=== PATIENT | male | born 2000 | race Caucasian/White ===

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

== ENCOUNTER 2020-03-01 09:30 | Emergency (ER) | payer OTHER ==
--- NOTE | 2020-03-01 09:54 | ERPHSYRPT ---
- History of Present Illness Time Seen by Provider: 03/01/20 09:49 Source: patient Exam Limitations: no limitations Patient Subjective Stated Complaint: Right shoulder pain Triage Nursing Assessment: Patient ambulated back to ED and transferred self to bed. Patient A+O X3. Patient's skin pink, warm and dry. Patient complains of right shoulder pain for the last 5 months. Patient states he has been seen by family dr and chiropractor and was told he has some type of tear in his right shoulder, but no imaging has been done. 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 Patient's states pain is 5/10 when at rest, but 10/10 when moving constant aching with intermittent, sharp pain. No visible bruising or injuries noted. Patient states sometimes when he lifts his right arm up he hears a grinding noise. Patient also states he occasional will have a sharp pain shoot from his right elbow to right hand/fingers. Physician History: Is a 19-year-old white male who presents with a complaint of right shoulder pain for 5 months following a dislocation. He has seen his family doctor has been referred to PT however no imaging has been done. Not followed up with Ortho. Pain has been treated with naproxen without any help. PT did not seem to help. Been told by his family doctor that there is a tear in his rotator cuff. It now makes a grinding noise and a pop. Method of Injury: other (Location right shoulder 5 months ago) Quality: sharpness Severity of Pain-Max: moderate Severity of Pain-Current: moderate Extremities Pain Location: shoulder: right (Tender over anterior and posterior aspects of the shoulder. There is also increased pain with internal rotation.) Modifying Factors: Improves With: movement Associated Symptoms: none Allergies/Adverse Reactions: No Known Drug Allergies Allergy (Verified 03/01/20 09:34) Hx Tetanus, Diphtheria Vaccination/Date Given: Yes Hx Influenza Vaccination/Date Given: No Hx Pneumococcal Vaccination/Date Given: No Immunizations Up to Date: Yes Travel Risk - International Travel Have you traveled outside of the country in past 3 weeks: No - Coronavirus Screening Are you exhibiting any of the following symptoms?: No Close contact with a COVID-19 positive Pt in past 14-21 Days: No - Review of Systems Constitutional: No Fever, No Chills Eyes: No Symptoms Ears, Nose, & Throat: No Symptoms Respiratory: No Cough, No Dyspnea Cardiac: No Chest Pain, No Edema, No Syncope Abdominal/Gastrointestinal: No Abdominal Pain, No Nausea, No Vomiting, No Diarrhea Genitourinary Symptoms: No Dysuria Musculoskeletal: Joint Pain, No Back Pain, No Neck Pain Skin: No Rash Neurological: No Dizziness, No Focal Weakness, No Sensory Changes Psychological: No Symptoms Endocrine: No Symptoms All Other Systems: Reviewed and Negative - Past Medical History Pertinent Past Medical History: No Neurological History: No Pertinent History ENT History: No Pertinent History Cardiac History: No Pertinent History Respiratory History: No Pertinent History Endocrine Medical History: No Pertinent History Musculoskeletal History: No Pertinent History GI Medical History: No Pertinent History History: No Pertinent History Psycho-Social History: Depression Male Reproductive Disorders: No Pertinent History - Past Surgical History Past Surgical History: No Neuro Surgical History: No Pertinent History Cardiac: No Pertinent History Respiratory: No Pertinent History Gastrointestinal: No Pertinent History Genitourinary: No Pertinent History Musculoskeletal: No Pertinent History Male Surgical History: No Pertinent History - Social History Smoking Status: Never smoker Exposure to second hand smoke: Yes Drug Use: none Patient Lives Alone: No - Nursing Vital Signs Nursing Vital Signs: Initial Vital Signs Temperature 98.4 F 03/01/20 09:37 Pulse Rate 77 03/01/20 09:37 Respiratory Rate 18 03/01/20 09:37 O2 Sat by Pulse Oximetry 99 03/01/20 09:37 Pain Scale Pain Intensity 5 - Physical Exam General Appearance: alert Eyes, Ears, Nose, Throat Exam: moist mucous membranes Neck Exam: non-tender, supple Cardiovascular/Respiratory Exam: chest non-tender, normal breath sounds, regular rate/rhythm, no respiratory distress Abdominal Exam: non-tender, No guarding Back Exam: normal inspection, No vertebral tenderness Shoulder Exam: normal inspection, bone tenderness, limited ROM, soft tissue tenderness (Underdose over the anterior and posterior aspects of the right shoulder also increased pain with internal rotation) Elbow/Forearm Exam: normal inspection, non-tender Wrist Exam: normal inspection, non-tender Hand Exam: normal inspection, non-tender Neuro/Tendon Exam: normal sensation, normal motor functions Mental Status Exam: alert, oriented x 3, cooperative Skin Exam: normal color, warm, dry SpO2: 99 - Course Nursing assessment & vital signs reviewed: Yes - Progress Progress: unchanged - Departure Departure Disposition: Home Clinical Impression: Rotator cuff disorder Condition: Stable Critical Care Time: No Referrals: DELFINO LEMUS [Primary Care Provider] - Instructions: Shoulder Tendinopathy (DC) Forms: Work/School Release Form Prescriptions: Methylprednisolone Packet [Medrol Dosepack] 4 mg PO UD #1 packet Diclofenac Sodium 50 mg [Voltaren 50 mg] 50 mg PO TID 10 Days #30 tablet.ec
[2020-03-01 10:27] VITALS: BP 145/82; PULSE 79; O2SAT 98
== END 2020-03-01 10:25 | disposition home or self-care (01) ==
LOC: ED 09:30
DX: M75.101 Unspecified rotator cuff tear or rupture of right shoulder, not specified as traumatic (principal); M25.511 Pain in right shoulder; X50.0XXA Overexertion from strenuous movement or load, initial encounter
CPT/HCPCS: 99283

== ENCOUNTER 2023-05-22 20:46 | Emergency (ER) | payer SELFPAY ==
[2023-05-22 21:09] VITALS: TEMP 98.6
[2023-05-22] MEDS ORDERED: Ativan 1 MG PO ONE (22:07)
[2023-05-22] MEDS ORDERED: Ativan 1 MG ONE ×2 (22:21→23:55)
[2023-05-22 22:34] LABS: Absolute Neutrophil Ct (ANC) 4.17 x10^3/uL (1.4-6.9); BASOPHIL % 0.3 % (0.0-0.4); Basophil (Absolute #) 0.02 x10^3/uL (0-0.4); Eosinophil % 1.3 % (0.00-5.0); Eosinophil (Absolute #) 0.08 x10^3/uL (0-0.5); Hematocrit 46.4 % (42-50); IMMATURE GRAN # 0.01 x10^3u/L (0.00-0.03); IMMATURE GRAN % 0.2 % (0.00-0.4); Lymphocyte (Absolute #) 1.23 x10^3/uL (1.0-4.6); Lymphocytes % 20.5 % (24.0-44.0); Mean Cell Volume 82.6 fL (78-100); Mean Corpuscular Hemoglobin 28.5 pg (26-32); Mean Corpuscular Hgb Concent. 34.5 g/dL (32-36); Mean Platelet Volume 9.7 fL (7.5-11.0); Monocyte (Absolute #) 0.49 x10^3/uL (0.0-1.3); Monocytes % 8.2 % (0.0-12.0); Neutrophil % 69.5 % (36.0-66.0); Platelet Count 334 x10^3/uL (150-450); Red Blood Count 5.62 x10^6/uL (4.1-5.6); Red Cell Distribution Width 11.9 % (11.5-14.0)
[2023-05-22 22:53] LABS: ALBUMIN 4.8 g/dL (3.5-5.0); ALKALINE PHOSPHATASE 57 U/L (38-126); ANION GAP 14.1 MEQ/L (5-15); BLOOD UREA NITROGEN 12 mg/dL (9-20); CHLORIDE 103 mmol/L (98-107); Calcium 9.6 mg/dL (8.4-10.2); Carbon Dioxide 29 mmol/L (22-30); Creatinine 1 0.86 mg/dL (0.66-1.25); EST GLOMERULAR FILTRATION RATE > 60.0 ML/MIN; Glucose 81 mg/dL (74-106); Potassium 4.2 mmol/L (3.5-5.1); SGOT/AST 33 U/L (17-59); SGPT/ALT 49 U/L (0-50); SODIUM 141 mmol/L (137-145); Total Protein 7.8 g/dL (6.3-8.2)
[2023-05-22 23:02] VITALS: O2SAT 97
--- NOTE | 2023-05-22 23:35 | ERPHSYRPT ---
- History of Present Illness Time Seen by Provider: 05/22/23 21:10 Source: patient Exam Limitations: no limitations Patient Subjective Stated Complaint: Pt reports he was at work when he started feeling flushed and having feeling like his heart was beating "hard", unsure if he would refer to it as palpitations. Pt reports he checked bp at work and it was 188/108, hx of high blood pressure but has not been on medicine since high school. Triage Nursing Assessment: Pt alert and oriented x3. Respirations easy/nonlabored. Skin w/p/d. Minimal facial flushing noted. Pt denies any pain at this time. Physician History: 23yo m presents to ED complaining of elevated BP - states he was at work and felt his face was flushed and his heart was racing so he decided to check his BP, states it was 190/110. Pt states he has been on anti-hypertensives in the past but has not taken them in several years. Pt denies any cp, blurry vision, TERAN, back pain. Pt does admit to significant anxiety today that he associates w/ family stress, denies any thoughts of HI or SI. Pt denies soa, n/v/abdominal pain. Pt takes lamotrigene, which he believes is for his anxiety and he is attempting to stop this medication - I informed him not to stop and consult the prescribing physician before changing his meds. Timing/Duration: today Activities at Onset: activity (at work at [employer]) Quality: other (flushing of his face) Chest Pain Radiation: no radiation Severity of Pain-Max: none Severity of Pain-Current: none Modifying Factors: Improves With: nothing Nitro Today/Relief: no nitro taken today Aspirin Treatment Today: no aspirin today Associated Symptoms: denies symptoms Prior Chest Pain/Cardiac Workup: no prior chest pain, no prior cardiac workup Allergies/Adverse Reactions: No Known Drug Allergies Allergy (Verified 05/22/23 21:01) Home Medications: Lamotrigine [Lamotrigine ER] 2 tab PO DAILY 05/22/23 [History] Hx Tetanus, Diphtheria Vaccination/Date Given: Yes Hx Influenza Vaccination/Date Given: No Hx Pneumococcal Vaccination/Date Given: No Travel Risk - International Travel Have you traveled outside of the country in past 3 weeks: No - Coronavirus Screening Are you exhibiting any of the following symptoms?: No Close contact with a COVID-19 positive Pt in past 14-21 Days: No - Vaccine Status Have you recieved a Covid-19 vaccination: No - Review of Systems Constitutional: No Fever, No Chills Respiratory: No Cough, No Dyspnea Cardiac: Palpitations (denies cp, syncope) Abdominal/Gastrointestinal: No Abdominal Pain, No Nausea, No Vomiting, No Diarrhea Neurological: No Dizziness, No Focal Weakness, No Sensory Changes Psychological: Anxiety - Past Medical History Pertinent Past Medical History: Yes Neurological History: No Pertinent History ENT History: No Pertinent History Cardiac History: Hypertension Respiratory History: No Pertinent History Endocrine Medical History: No Pertinent History Musculoskeletal History: No Pertinent History GI Medical History: No Pertinent History History: No Pertinent History Psycho-Social History: Depression Male Reproductive Disorders: No Pertinent History - Past Surgical History Past Surgical History: No Neuro Surgical History: No Pertinent History Cardiac: No Pertinent History Respiratory: No Pertinent History Gastrointestinal: No Pertinent History Genitourinary: No Pertinent History Musculoskeletal: No Pertinent History Male Surgical History: No Pertinent History Other Surgical History: wisdom teeth - Social History Smoking Status: Never smoker Exposure to second hand smoke: No Drug Use: none Patient Lives Alone: No - Nursing Vital Signs Nursing Vital Signs: Initial Vital Signs Temperature 98.6 F 05/22/23 20:56 Pulse Rate 117 H 05/22/23 20:56 Respiratory Rate 16 05/22/23 20:56 Blood Pressure 167/101 05/22/23 20:56 O2 Sat by Pulse Oximetry 98 05/22/23 20:56 Pain Scale Pain Intensity 0 - Physical Exam General Appearance: no apparent distress, alert Respiratory Exam: normal breath sounds, lungs clear, No respiratory distress Cardiovascular Exam: regular rate/rhythm, normal heart sounds, No edema Gastrointestinal/Abdomen Exam: soft, No tenderness, No mass SpO2 Interpretation: normal SpO2: 97 O2 Delivery: Room Air - Course Nursing assessment & vital signs reviewed: Yes EKG Interpreted by Me: RATE ([id number]), Sinus Rhythm, NORMAL AXIS, NORMAL INTERVALS, NORMAL QRS, NORMAL ST-T Ordered Tests: Active Orders 24 hr Category Date Time Status EKG-ER Only STAT Care 05/22/23 21:48 Active CBC W DIFF Stat Lab 05/22/23 22:31 Completed CMP Stat Lab 05/22/23 22:31 Completed TROPONIN Q4H Lab 05/22/23 22:31 Completed TROPONIN Q4H Lab 05/23/23 02:00 Ordered TROPONIN Q4H Lab 05/23/23 06:00 Ordered Medication Summary Discontinued Medications Generic Name Dose Route Start Last Admin Trade Name Cristiane PRN Reason Stop Dose Admin Lorazepam 2 mg 05/22/23 22:07 05/22/23 22:22 Lorazepam 1 Mg Tablet PO 05/22/23 22:08 2 mg STAT ONE Administration Lorazepam Confirm 05/22/23 22:21 Lorazepam 1 Mg Tablet Administered 05/22/23 22:22 Dose 2 mg .ROUTE .STK-MED ONE Lab/Rad Data: Laboratory Result Diagrams 05/22/23 22:31 05/22/23 22:31 Laboratory Results 05/22/23 05/22/23 05/22/23 Range/Units 22:31 22:31 22:31 WBC 6.0 (4.0-10.5) x10^3/uL RBC 5.62 H (4.1-5.6) x10^6/uL Hgb 16.0 (12.5-18.0) g/dL Hct 46.4 (42-50) % MCV 82.6 (78-100) fL MCH 28.5 (26-32) pg MCHC 34.5 (32-36) g/dL RDW 11.9 (11.5-14.0) % Plt Count 334 (150-450) x10^3/uL MPV 9.7 (7.5-11.0) fL Gran % 69.5 H (36.0-66.0) % Immature Gran % (Auto) 0.2 (0.00-0.4) % Nucleat RBC Rel Count 0.0 (0.00-0.1) % Eos # (Auto) 0.08 (0-0.5) x10^3/uL Immature Gran # (Auto) 0.01 (0.00-0.03) x10^3u/L Absolute Lymphs (auto) 1.23 (1.0-4.6) x10^3/uL Absolute Monos (auto) 0.49 (0.0-1.3) x10^3/uL Absolute Nucleated RBC 0.00 (0.00-0.01) x10^3u/L Lymphocytes % 20.5 L (24.0-44.0) % Monocytes % 8.2 (0.0-12.0) % Eosinophils % 1.3 (0.00-5.0) % Basophils % 0.3 (0.0-0.4) % Absolute Granulocytes 4.17 (1.4-6.9) x10^3/uL Basophils # 0.02 (0-0.4) x10^3/uL Sodium 141 (137-145) mmol/L Potassium 4.2 (3.5-5.1) mmol/L Chloride 103 (98-107) mmol/L Carbon Dioxide 29 (22-30) mmol/L Anion Gap 14.1 (5-15) MEQ/L BUN 12 (9-20) mg/dL Creatinine 0.86 (0.66-1.25) mg/dL Estimated GFR > 60.0 ML/MIN Glucose 81 (74-106) mg/dL Calcium 9.6 (8.4-10.2) mg/dL Total Bilirubin 0.40 (0.2-1.3) mg/dL AST 33 (17-59) U/L ALT 49 (0-50) U/L Alkaline Phosphatase 57 (38-126) U/L Troponin I < 0.012 (0.000-0.034) ng/mL Serum Total Protein 7.8 (6.3-8.2) g/dL Albumin 4.8 (3.5-5.0) g/dL - Progress Progress: improved, re-examined Air Movement: good Progress Note: 05/22/23 23:39 BP initially 160/110 in ED pt reported significant anxiety, given 2mg PO ativan repeat BPs <140s systolic following ativan pt reports feeling much better, not feeling heart racing, anxiety much improved plan for dc w/ close f/u w/ PCP to restart BP meds and anxiety meds given 2 2mg ativan tablets from ED for at home exacerbations of anxiety Blood Culture(s) Obtained: No Antibiotics given: No Will see patient in: office Counseled pt/family regarding: lab results, diagnosis, need for follow-up, smoki ng cessation Medical Desision Making - Social Determinants of Health Limited access to: medical care (pt is w/o insurance currently) - Risk of complications Low Risk: Low risk of morbidity from additional dx testing or treatment - Departure Departure Disposition: Home Clinical Impression: Anxiety Hypertension Qualifiers: Hypertension type: primary hypertension Qualified Code(s): I10 - Essential (primary) hypertension Condition: Stable Critical Care Time: No Referrals: FRANCISCO VELAZCO NP [Primary Care Provider] - Follow up/PCP as directed Instructions: High Blood Pressure (DC) Additional Instructions: follow up closely with PCP to get started on BP medications again 2 tablets ativan that can be taken for acute worsening of anxiety
[2023-05-22] MEDS ORDERED: Ativan 1 MG PO PRN (23:51)
[2023-05-23 00:02] VITALS: BP 142/80; PULSE 89; RESP 17
== END 2023-05-23 00:02 | disposition home or self-care (01) ==
LOC: ED 20:46
DX: F41.9 Anxiety disorder, unspecified (principal); I10 Essential (primary) hypertension; Z79.899 Other long term (current) drug therapy; Z28.310 Unvaccinated for COVID-19
CPT/HCPCS: 36415; 80053; 84484; 85025; 93005; 99283; A9270-GY